=== PATIENT | male | born 1960 | race Hispanic/Latino ===

== ENCOUNTER 2017-08-09 15:24 | Emergency (ER) | payer OTHER ==
[2017-08-09 15:25] VITALS: BMI 25.8
[2017-08-09 15:45] VITALS: BP 154/94; PULSE 67; RESP 20; TEMP 97.9; O2SAT 98
[2017-08-09 16:25] LABS: ALB/GLOB RATIO 1.4 (1.1-1.8); ALKALINE PHOSPHATASE 58 U/L (38-126); ALT/SGPT 49 U/L (7-56); AST/SGOT 39 U/L (17-59); BILIRUBIN,TOTAL 0.7 mg/dL (0.2-1.3); BLOOD UREA NITROGEN 8 mg/dL (7-21); CALCIUM 9.2 mg/dL (8.4-10.5); CARBON DIOXIDE 30 mmol/L (21-33); CHLORIDE 101 mmol/L (98-107); GFR AFRICAN-AMERICAN > 60; GLUCOSE,RANDOM 106 mg/dL (70-110); SODIUM 139 mmol/L (132-148); TOTAL PROTEIN 7.1 g/dL (5.8-8.3)
[2017-08-09 17:02] LABS: BASO # 0.02 K/mm3 (0.0-2.0); BASO % 0.2 % (0.0-3.0); EOS # 0.1 (0.0-0.7); EOS % 1.3 % (1.5-5.0); GRAN # 5.84 (1.4-6.5); GRAN % 62.9 % (50.0-68.0); HEMATOCRIT 41.5 % (42.0-52.0); LYMPH # 2.4 (1.2-3.4); LYMPH % 26.1 % (22.0-35.0); MEAN CELL VOLUME 102.2 fl (80.0-105.0); MEAN CORPUSCULAR HEMOGLOBIN 34.7 pg (25.0-35.0); MEAN PLATELET VOLUME 10.5 fl (7.0-11.0); MONO # 0.9 (0.1-0.6); MONO % 9.5 % (1.0-6.0); RED CELL DISTRIBUTION WIDTH 12.7 % (11.5-14.5); WHITE BLOOD COUNT 9.3 10^3/ul (4.5-11.0)
--- NOTE | 2017-08-09 17:20 | ED PDOC ---
Arrival/HPI - General Chief Complaint: Wound Check Time Seen by Provider: 08/09/17 15:47 Historian: Patient - History of Present Illness Narrative History of Present Illness (Text): 08/09/17 17:19 A 57 year old male with no significant past medical history, presents to the emergency department for further evaluation of an incision. The patient states that part of his wound opened up after a surgery he had yesterday at another hospital. The patient states that he has 2 cysts removed and a right inguinal hernia repair. He states that one of his incisions from the cyst removal started to drain clear fluid this afternoon. The patient denies fevers, chills, headache, dizziness, chest pain, shortness of breath, dyspnea on exertion, cough , abdominal pain, nausea, vomiting, diarrhea, back pain, neck pain, urinary/ bowel changes, or any other complaint. Time/Duration: Other (Several Weeks) Symptom Onset: Sudden Symptom Course: Unchanged Activities at Onset: Rest, Light Context: Home Past Medical History - Infectious Disease Hx of Infectious Diseases: None - Tetanus Immunization Tetanus Immunization: Unknown - Cardiac Hx Hyperlipemia: Yes - Hematological/Oncological Hx Blood Transfusions: No Hx Blood Transfusion Reaction: No - Musculoskeletal/Rheumatological Hx Falls: Yes Hx Fractures: Yes (05/15/14 Left Femur Fracture) - Psychiatric Hx Depression: No Hx Emotional Abuse: No Hx Physical Abuse: No Hx Substance Use: No - Past Surgical History Past Surgical History: Non-Contributing - Surgical History Other/Comment: 08/08/17- umbilical hernia - Anesthesia Hx Anesthesia: Yes Hx Anesthesia Reactions: No Hx Malignant Hyperthermia: No - Suicidal Assessment Feels Threatened In Home Enviroment: No Family/Social History - Physician Review Nursing Documentation Reviewed: Yes Family/Social History: No Known Family HX Smoking Status: Current Some Days Smoker Hx Alcohol Use: Yes Hx Substance Use: No Hx Substance Use Treatment: No Allergies/Home Meds Allergies/Adverse Reactions: Allergies No Known Allergies Allergy (Verified 08/09/17 15:45) Home Medications: Home Meds Medication Instructions Recorded Confirmed ALPRAZolam [Xanax] 1 tab PO DAILY 08/09/17 08/09/17 oxyCODONE/Acetaminophen [Percocet 1 tab PO Q6 PRN 08/09/17 08/09/17 5/325 mg Tab] Review of Systems - Physician Review All systems were reviewed & negative as marked: Yes - Review of Systems Constitutional: absent: Fevers, Night Sweats ENT: absent: Sore Throat Respiratory: absent: SOB, Cough Cardiovascular: absent: Chest Pain, CHEW Gastrointestinal: absent: Abdominal Pain, Stool Changes, Diarrhea, Nausea, Vomiting Genitourinary Male: absent: Urinary Output Changes Musculoskeletal: absent: Back Pain, Neck Pain Skin: Other (Drainage s/p cyst removal on abdomen) Neurological: absent: Headache, Dizziness Physical Exam Vital Signs Reviewed: Yes Vital Signs Temp Pulse Resp BP Pulse Ox 08/09/17 15:38 97.9 F 67 20 154/94 H 98 Temperature: Afebrile Blood Pressure: Normal Pulse: Regular Respiratory Rate: Normal Appearance: Positive for: Well-Appearing, Non-Toxic, Comfortable Pain Distress: None Mental Status: Positive for: Alert and Oriented X 3 - Systems Exam Head: Present: Atraumatic, Normocephalic Pupils: Present: PERRL Extroacular Muscles: Present: EOMI Conjunctiva: Present: Normal Mouth: Present: Moist Mucous Membranes Neck: Present: Normal Range of Motion, Other (Patient has a well closed surgical inclision on the right side of the neck.) Respiratory/Chest: Present: Clear to Auscultation, Good Air Exchange. No: Respiratory Distress, Accessory Muscle Use Cardiovascular: Present: Regular Rate and Rhythm, Normal S1, S2. No: Murmurs Abdomen: Present: Normal Bowel Sounds. No: Tenderness, Distention, Peritoneal Signs Back: Present: Normal Inspection Upper Extremity: Present: Normal Inspection. No: Cyanosis, Edema Lower Extremity: Present: Normal Inspection. No: Edema Neurological: Present: GCS=15, CN II-XII Intact, Speech Normal Skin: Present: Erythematous (mild errythema around incision.), Other (Patient has 3 small laproscopic incisions sutured with no signs of infection. He has a 2 cm incision on the rigth side of the abdomen with a small amount of serous fluid draining. The incision is superficial with no subcutaneous fat exposed. ) Psychiatric: Present: Alert, Oriented x 3, Normal Insight, Normal Concentration Medical Decision Making ED Course and Treatment: 08/09/17 17:28 Impression: A 57 year old male presents to the emergency department complaining of one of his incisions from a cyst removal he had done yesterday, started to drain clear fluid this afternoon. Plan: -- Labs -- Keflex -- Reassess and disposition Prior Visits: Notes and results from previous visits were reviewed. Patient was last seen in the emergency department on 05/15/2014. Patient was seen in the emergency department with severe left hip pain after falling down a flight of stairs. The patient was hospitalized. Progress Notes: - Lab Interpretations Lab Results: 08/09/17 16:00 08/09/17 16:00 Lab Results 08/09/17 16:00: Sodium 139, Potassium 4.0, Chloride 101, Carbon Dioxide 30, Anion Gap 12, BUN 8, Creatinine 0.9, Est GFR ( Amer) > 60, Est GFR (Non- Af Amer) > 60, Random Glucose 106, Calcium 9.2, Total Bilirubin 0.7, AST 39, ALT 49, Alkaline Phosphatase 58, Total Protein 7.1, Albumin 4.1, Globulin 3.0, Albumin/Globulin Ratio 1.4 08/09/17 16:00: WBC 9.3 D, RBC 4.06, Hgb 14.1, Hct 41.5 L, MCV 102.2, MCH 34.7 , MCHC 34.0, RDW 12.7, Plt Count 203, MPV 10.5, Gran % 62.9, Lymph % (Auto) 26.1 , [place] % (Auto) 9.5 H, Eos % (Auto) 1.3 L, Baso % (Auto) 0.2, Gran # 5.84, Lymph # 2.4, [place] # 0.9 H, Eos # 0.1, Baso # 0.02 - Medication Orders Current Medication Orders: Discontinued Medications Cephalexin Monohydrate (Keflex) 500 mg PO STAT STA PRN Reason: Protocol Stop: 08/09/17 17:16 Last Admin: 08/09/17 17:23 Dose: 500 mg - Scribe Statement The provider has reviewed the documentation as recorded by the Henry Olsen Provider Marsibe Attestation: All medical record entries made by the Scribe were at my direction and personally dictated by me. I have reviewed the chart and agree that the record accurately reflects my personal performance of the history, physical exam, medical decision making, and the department course for this patient. I have also personally directed, reviewed, and agree with the discharge instructions and disposition. Disposition/Present on Arrival - Present on Arrival Any Indicators Present on Arrival: No History of DVT/PE: No History of Uncontrolled Diabetes: No Urinary Catheter: Yes History of Decub. Ulcer: No History Surgical Site Infection Following: None - Disposition Have Diagnosis and Disposition been Completed?: Yes Diagnosis: Cellulitis Disposition: HOME/ ROUTINE Disposition Time: 17:00 Condition: GOOD Discharge Instructions (ExitCare): Cellulitis (ED) Additional Instructions: Thank you for letting us take care of you today. Your provider was Dr. Cantrell. You were treated for a skin infection. The emergency medical care you received today was directed at your acute symptoms. If you were prescribed any medication, please fill it and take as directed. It may take several days for your symptoms to resolve. Return to the Emergency Department if your symptoms worsen, do not improve, or if you have any other problems. Please contact your doctor or call one of the physicians/clinics you have been referred to that are listed on the Patient Visit Information form that is included in your discharge packet. Bring any paperwork you were given at discharge with you along with any medications you are taking to your follow up visit. Our treatment cannot replace ongoing medical care by a primary care provider (PCP) outside of the emergency department. Thank you for allowing the [facility] team to be part of your care today. Follow up with your surgeon in 2-3 days for a wound check and re-evaluation. Prescriptions: Cephalexin [cephalexin] 500 mg PO QID #20 cap Referrals: Andrew Baca MD [Primary Care Provider] - Follow up with primary Forms: [employer] ([place])
== END 2017-08-09 17:28 | disposition home or self-care (01) ==
LOC: ED 15:24
DX: L03.311 Cellulitis of abdominal wall (principal)

== ENCOUNTER 2018-12-23 10:24 | Emergency (ER) | payer OTHER ==
[2018-12-23 12:09] VITALS: BMI 20.1
[2018-12-23 12:12] VITALS: RESP 18; TEMP 97.9
--- NOTE | 2018-12-23 12:22 | ED PDOC ---
Arrival/HPI - General Chief Complaint: Upper Extremity Problem/Injury Historian: Patient - History of Present Illness Narrative History of Present Illness (Text): 12/23/18 12:17 58 y/o male, pmh including htn, nkda, c/o lt. lateral elbow pain x 3 days with no fall or trauma. Aching pain, aggravated by movement of the left elbow extension with against the resistant, no redness, no fever or chills, no headache or night sweat, no chest pain or shortness of breath, no palpitation, no other medical or psychological complaints. Past Medical History - Provider Review Nursing Documentation Reviewed: Yes - Infectious Disease Hx of Infectious Diseases: None - Tetanus Immunization Tetanus Immunization: Unknown - Cardiac Hx Hypertension: Yes - Hematological/Oncological Hx Blood Transfusions: No Hx Blood Transfusion Reaction: No - Musculoskeletal/Rheumatological Hx Falls: Yes Hx Fractures: Yes (05/15/14 Left Femur Fracture) - Psychiatric Hx Depression: No Hx Emotional Abuse: No Hx Physical Abuse: No Hx Substance Use: No - Past Surgical History Past Surgical History: Non-Contributing - Surgical History Other/Comment: 08/08/17- umbilical hernia - Anesthesia Hx Anesthesia: Yes Hx Anesthesia Reactions: No Hx Malignant Hyperthermia: No - Suicidal Assessment Feels Threatened In Home Enviroment: No Family/Social History - Physician Review Nursing Documentation Reviewed: Yes Family/Social History: Unknown Family HX Smoking Status: Current Some Days Smoker Hx Alcohol Use: Yes Hx Substance Use: No Hx Substance Use Treatment: No Allergies/Home Meds Allergies/Adverse Reactions: Allergies No Known Allergies Allergy (Verified 08/09/17 15:45) Review of Systems - Review of Systems Constitutional: absent: Fatigue, Fevers Eyes: absent: Vision Changes ENT: absent: Hearing Changes Respiratory: absent: SOB, Cough Cardiovascular: absent: Chest Pain Gastrointestinal: absent: Abdominal Pain, Nausea, Vomiting Musculoskeletal: Arthralgias. absent: Back Pain, Neck Pain, Joint Swelling Skin: absent: Pruritis Neurological: absent: Headache, Dizziness Psychiatric: absent: Anxiety, Depression, Suicidal Ideation Physical Exam Vital Signs Reviewed: Yes Vital Signs Temp Pulse Resp BP Pulse Ox 12/23/18 12:12 97.9 F 98 H 18 155/100 H 99 Temperature: Afebrile Blood Pressure: Normal Pulse: Regular Respiratory Rate: Normal Appearance: Positive for: Well-Appearing, Non-Toxic Pain Distress: Severe Mental Status: Positive for: Alert and Oriented X 3 - Systems Exam Head: Present: Atraumatic, Normocephalic Pupils: Present: PERRL Extroacular Muscles: Present: EOMI Conjunctiva: Present: Normal Ears: Present: NORMAL TM, Normal Canal. No: Erythema Mouth: Present: Moist Mucous Membranes Nose (External): Present: Atraumatic. No: Abrasion, Contusion, Laceration Nose (Internal): Present: Normal Inspection, No Active Bleeding. No: Rhin orrhea, Septal Hematoma, Epistaxis Neck: Present: Normal Range of Motion, Trachea Midline. No: Meningeal Signs, MIDLINE TENDERNESS, Paraspinal Tenderness, Lymphadenopathy Respiratory/Chest: Present: Clear to Auscultation, Good Air Exchange. No: Respiratory Distress, Accessory Muscle Use, Wheezes, Decreased Breath Sounds, Rales, Retracting, Rhonchi, Tachypneic, Tender to Palpation Cardiovascular: Present: Regular Rate and Rhythm, Normal S1, S2. No: Murmurs Abdomen: No: Tenderness, Distention, Peritoneal Signs, Rebound, Guarding Back: Present: Normal Inspection Upper Extremity: Present: Normal Inspection, Other (Lt. elbow: +ttp on the lateral epicondyle region with no swelling, pain is 100% reproducible by elbow extension wth 5 digits extension against resistance, no cellulitis or ulcers, no streaking, FROM without limitation, sensation intact, motor 5/5, +radial pulse, capillary refill< 2 seconds, neurovascular intact. ). No: Cyanosis, Edema Lower Extremity: Present: Normal Inspection. No: Edema Neurological: Present: GCS=15, CN II-XII Intact, Speech Normal Skin: Present: Warm, Dry, Rashes (nasal bridge region noted to have mild cellulitis approx. 4cmx1.5cm without streaking and no flucutancy abscess. ), Normal Color Psychiatric: Present: Alert, Oriented x 3, Normal Insight, Normal Concentration Medical Decision Making ED Course and Treatment: 12/23/18 12:29 -toradol/percocet/prednisone/clindamycin -observe and reassess 12/23/18 14:09 -Pt. feels much better, [place] wrap and sling applied, no cardiopulmonary or neurological complaints. -Discharge home with prednisone, naproxen, lidoderm patch, clindamycin, ice compression, follow up with your own pmd and orthopedic within 2 days, return to the ER for any new or worsening signs or symptoms. - PA / HAUL DRIVER / Resident Statement MD/DO has reviewed & agrees with the documentation as recorded. Disposition/Present on Arrival - Present on Arrival Any Indicators Present on Arrival: No History of DVT/PE: No History of Uncontrolled Diabetes: No Urinary Catheter: Yes History of Decub. Ulcer: No History Surgical Site Infection Following: None - Disposition Have Diagnosis and Disposition been Completed?: Yes Diagnosis: Lateral epicondylitis of elbow, Nose cellulitis Disposition: HOME/ ROUTINE Disposition Time: 12:30 Patient Plan: Discharge Patient Problems: Current Active Problems Problem Status Onset Lateral epicondylitis of elbow Acute Nose cellulitis Acute Condition: IMPROVED Discharge Instructions (ExitCare): Cellulitis (ED), Lateral Epicondylitis, Cellulitis (Skin Infection), Adult (DC) Additional Instructions: -Discharge home with prednisone, naproxen, lidoderm patch, clindamycin, ice compression, follow up with your own pmd and orthopedic within 2 days, return to the ER for any new or worsening signs or symptoms. Prescriptions: Clindamycin [Cleocin] 300 mg PO QID #28 cap Lidocaine 5% [Lidoderm] 1 patch TOP DAILY #10 patch Naproxen 500 mg PO BID PRN #20 tablet PRN Reason: Other Prednisone 50 mg PO DAILY #3 tablet Referrals: Ge Layne MD [Staff Provider] - Follow up with primary Eddie Wise MD [Staff Provider] - Follow up with primary Forms: [employer] ([place]an), WORK NOTE
[2018-12-23] MEDS ORDERED: Oxycodone/Acetaminophen 5/325 mg Tab PO STA (12:23)
[2018-12-23] MEDS ORDERED: Lidocaine 5% Patch TD STA (12:23)
[2018-12-23 14:09] VITALS: BP 148/92; PULSE 76; O2SAT 98
== END 2018-12-23 14:18 | disposition home or self-care (01) ==
LOC: ED 10:24
DX: M77.12 Lateral epicondylitis, left elbow (principal); J34.0 Abscess, furuncle and carbuncle of nose; I10 Essential (primary) hypertension
CPT/HCPCS: 29240; 96372; 99284; J1885